=== PATIENT | male | born 1960 | race Two or more races ===

== ENCOUNTER 2016-08-07 02:58 | Inpatient (IN) | payer MEDICAID ==
[~2016-08-07] VITALS: Ht 182.9 cm; Wt 85.0 kg
[~2016-08-07 02:58] MED LIST: ASPI-247; HYDR1CAP27; METF-370; METO25TA62; NIAC500T58
[2016-08-07 03:30] LABS: Basophils # (auto) 0 uL; Basophils % (auto) 0.4 % (0.0-2.0); CONDITION Y; Eosinophils # (auto) 0.4 uL; Eosinophils % (auto) 3.5 % (0.0-7.0); Hematocrit 43.2 % (41.0-53.0); Hemoglobin 14.1 g/dL (13.5-17.5); Lymphocytes % (auto) 32.8 % (10.0-50.0); Mean Corpuscular Hemoglobin 28.1 pg (28.0-32.0); Mean Corpuscular Hgb Conc. 32.7 g/dL (32.0-36.0); Mean Corpuscular Volume 85.9 fL (80.0-100.0); Mean Platelet Volume 8.8 fL (7.4-10.4); Monocytes # (auto) 1.2 uL; Monocytes % (auto) 9.9 % (0.0-12.0); Neutrophils # (auto) 6.5 uL; Neutrophils % (auto) 53.4 % (37.0-80.0); Platelet Count (auto) 250 10^3/uL (140-450); Red Cell Distribution Width 15.1 % (11.6-16.0); White Blood Cell 12.3 10^3/uL (4.4-10.8)
[2016-08-07 03:46] LABS: INR 0.97 (0.9-1.15); Prothrombin Time 10.6 sec (9.37-12.3)
[2016-08-07 03:55] LABS: Albumin 3.5 g/dL (3.4-5.0); BUN/Creatinine Ratio 14.8; Bilirubin, Total 0.2 mg/dL (0.2-1.0); Calcium 8.6 mg/dL (8.5-10.1); Magnesium 2.2 mg/dL (1.6-2.6); Potassium 3.6 mmol/L (3.5-5.1); Total Protein 6.7 g/dL (6.4-8.2)
[2016-08-07] MEDS ORDERED: ASPirin 81 mg TAB PO ONE (05:15)
[2016-08-07] MEDS ORDERED: NITROGLYCERIN 2% OINT 1GM PKG TD ONE (05:15)
[2016-08-07] MEDS ORDERED: DEXTROSE (50%) 50ML SYRG IV PRN (10:30)
[2016-08-07] MEDS ORDERED: ZOLPIDEM TARTRATE 5 MG TAB PO PRN (10:45)
[2016-08-07] MEDS ORDERED: ACETAMINOPHEN 325 MG TAB PO PRN (10:45)
[2016-08-07] MEDS ORDERED: ONDANSETRON HCL 4 MG/2 ML VIAL IV PRN (10:45)
[2016-08-07] MEDS ORDERED: LORazepam 0.5 MG TAB PO PRN (10:45)
[2016-08-07] MEDS ORDERED: NITROGLYCERIN 0.4 MG SL TAB SL PRN ×2 (10:45)
[2016-08-07] MEDS ORDERED: ALUM & MAG HYDROX-SIMETH LIQ(MAALOX) 30 ML PO ONE (10:45)
[2016-08-07] MEDS ORDERED: hydrOXYzine PAMOATE 25 MG CAP PO PRN (10:45)
[2016-08-07] MEDS ORDERED: MORPHINE SULF INJ 2 MG/ML SYRINGE 1ML IV PRN ×2 (10:45)
[2016-08-07 11:08] LABS: B-Type Natriuretic Peptide 48.82 pg/mL (0-100)
[2016-08-07 11:11] LABS: Temperature: 24.1 C (20.0-25.0)
[2016-08-07] MEDS: ENALAPRIL MALEATE 2.5 MG TAB PO SCH ×2 (11:20→22:00)
[2016-08-07] MEDS: METOPROLOL TARTRATE 25 MG TAB PO SCH ×2 (11:20→22:00)
[2016-08-07] MEDS: CLOPIDOGREL BISULFATE 75 MG TAB PO SCH (11:20)
[2016-08-07] MEDS: ACCU-CHEK COMFORT CURVE STRIP VI SCH ×3 (11:25→22:00)
[2016-08-07] MEDS: InsuLIN REG 1unit/0.01ml Soln (100units/ml) SC SCH ×3 (11:25→22:00)
[2016-08-07] MEDS: SODIUM CHLOR 0.9% PF (SALINE LOCK) 10ML VIAL IV SCH ×2 (12:15→22:00)
[2016-08-07 13:46] LABS: Urine Bilirubin Negative (Negative); Urine Blood Negative /uL (Negative); Urine Color Yellow (Yellow); Urine Glucose Normal (Normal); Urine Ketone Negative (Negative); Urine Mucus FEW (None Seen); Urine Nitrite Negative (Negative); Urine RBC <1 /hpf (0 - 3); Urine Urobilinogen Normal (Negative); Urine pH 5.5 (5.0-8.0)
[2016-08-07] MEDS: NITROGLYCERIN 0.4MG/HR TOPICAL PATCH TD SCH (15:09)
[2016-08-07] MEDS: RANOLAZINE ER 500 MG TAB PO SCH (22:00)
[2016-08-07] MEDS: ATORVASTATIN 20 MG TAB PO SCH (22:00)
[2016-08-07] MEDS ORDERED: PATIENTS OWN MEDICATION PO SCH ×2 (22:00)
[2016-08-08 03:54] LABS: Basophils # (auto) 0 uL; Basophils % (auto) 0.2 % (0.0-2.0); CONDITION Y; Eosinophils # (auto) 0.2 uL; Eosinophils % (auto) 1.6 % (0.0-7.0); Hematocrit 41.3 % (41.0-53.0); Hemoglobin 13.6 g/dL (13.5-17.5); Lymphocytes # (auto) 2.8 uL; Lymphocytes % (auto) 19.3 % (10.0-50.0); Mean Corpuscular Hemoglobin 28.3 pg (28.0-32.0); Mean Corpuscular Volume 85.9 fL (80.0-100.0); Mean Platelet Volume 9.3 fL (7.4-10.4); Monocytes # (auto) 1.2 uL; Monocytes % (auto) 8.4 % (0.0-12.0); Neutrophils # (auto) 10.4 uL; Neutrophils % (auto) 70.5 % (37.0-80.0); Platelet Count (auto) 236 10^3/uL (140-450); White Blood Cell 14.7 10^3/uL (4.4-10.8)
[2016-08-08 04:30] LABS: Albumin 3.3 g/dL (3.4-5.0); BUN/Creatinine Ratio 9.3; Bilirubin, Total 0.5 mg/dL (0.2-1.0); Calcium 8.3 mg/dL (8.5-10.1); Magnesium 2.2 mg/dL (1.6-2.6); Total Protein 6.2 g/dL (6.4-8.2)
[2016-08-08] MEDS: SODIUM CHLOR 0.9% PF (SALINE LOCK) 10ML VIAL IV SCH ×3 (06:02→22:34)
[2016-08-08] MEDS: ACCU-CHEK COMFORT CURVE STRIP VI SCH ×4 (06:21→22:30)
[2016-08-08] MEDS: InsuLIN REG 1unit/0.01ml Soln (100units/ml) SC SCH ×4 (06:21→22:00)
[2016-08-08] MEDS ORDERED: ANGIOMAX 250 MG VIAL IV ONE (07:55)
[2016-08-08] MEDS ORDERED: MIDAZOLAM HCL 1MG/1ML-2 ML VIAL ONE (07:56)
[2016-08-08] MEDS ORDERED: EPTIFIBATIDE INJ (2MG/ML) 10ML VIAL IV ONE (07:56)
[2016-08-08] MEDS ORDERED: SODIUM CHL 0.9% 0 ML ONE (07:56)
[2016-08-08] MEDS ORDERED: fentaNYL CITRATE 100 MCG/2 ML VL ONE (07:56)
[2016-08-08] MEDS ORDERED: IOHEXOL 350 MG/ML 100ML IJ ONE (08:07)
[2016-08-08] MEDS ORDERED: LIDOCAINE 2%HCL (LOCAL ANESTH.) INJ 20ML MDV ONE (08:07)
[2016-08-08] MEDS: NITROGLYCERIN 0.4MG/HR TOPICAL PATCH TD SCH (10:00)
[2016-08-08] MEDS: DOCUSATE SOD 100 MG CAP PO SCH (10:00)
[2016-08-08] MEDS: ENALAPRIL MALEATE 2.5 MG TAB PO SCH ×2 (10:00→22:32)
[2016-08-08] MEDS ORDERED: ASPirin 325 MG TAB PO SCH (10:00)
[2016-08-08] MEDS: RANOLAZINE ER 500 MG TAB PO SCH ×2 (10:00→22:00)
[2016-08-08] MEDS: ezetimibe 10mg tablet PO SCH (10:00)
[2016-08-08] MEDS: CLOPIDOGREL BISULFATE 75 MG TAB PO SCH (10:26)
[2016-08-08 10:45] VITALS: BP 112/57
[2016-08-08 14:09] VITALS: BP 112/59
[2016-08-08 16:46] VITALS: BP 114/62
[2016-08-08 22:17] VITALS: BP 133/70
[2016-08-08] MEDS: ENOXAPARIN SOD 80 MG/0.8ML SYRINGE SC SCH (22:32)
[2016-08-08] MEDS: ATORVASTATIN 20 MG TAB PO SCH (22:33)
[2016-08-09 05:07] VITALS: BP 113/64
[2016-08-09] MEDS: SODIUM CHLOR 0.9% PF (SALINE LOCK) 10ML VIAL IV SCH ×2 (06:48→15:20)
[2016-08-09] MEDS: InsuLIN REG 1unit/0.01ml Soln (100units/ml) SC SCH ×2 (06:54→11:30)
[2016-08-09] MEDS: ACCU-CHEK COMFORT CURVE STRIP VI SCH ×2 (06:54→11:45)
[2016-08-09 07:15] LABS: Basophils # (auto) 0 uL; Basophils % (auto) 0.3 % (0.0-2.0); CONDITION Y; Eosinophils # (auto) 0.2 uL; Eosinophils % (auto) 1.7 % (0.0-7.0); Hematocrit 43.2 % (41.0-53.0); Hemoglobin 14.3 g/dL (13.5-17.5); Lymphocytes # (auto) 3.9 uL; Lymphocytes % (auto) 30.8 % (10.0-50.0); Mean Corpuscular Hemoglobin 28.1 pg (28.0-32.0); Mean Corpuscular Hgb Conc. 33.1 g/dL (32.0-36.0); Mean Corpuscular Volume 84.8 fL (80.0-100.0); Mean Platelet Volume 8.9 fL (7.4-10.4); Monocytes % (auto) 8.3 % (0.0-12.0); Neutrophils # (auto) 7.4 uL; Neutrophils % (auto) 58.9 % (37.0-80.0); Platelet Count (auto) 228 10^3/uL (140-450); White Blood Cell 12.6 10^3/uL (4.4-10.8)
[2016-08-09 07:26] LABS: BUN/Creatinine Ratio 14.1; Calcium 8.3 mg/dL (8.5-10.1); Magnesium 2.2 mg/dL (1.6-2.6); Potassium 3.9 mmol/L (3.5-5.1)
[2016-08-09 08:00] VITALS: BP 113/64
[2016-08-09 09:00] VITALS: BP 127/63
[2016-08-09] MEDS: RANOLAZINE ER 500 MG TAB PO SCH (09:38)
[2016-08-09] MEDS: DOCUSATE SOD 100 MG CAP PO SCH (09:38)
[2016-08-09] MEDS: ENALAPRIL MALEATE 2.5 MG TAB PO SCH (09:38)
[2016-08-09] MEDS: ezetimibe 10mg tablet PO SCH (09:47)
[2016-08-09] MEDS: ENOXAPARIN SOD 80 MG/0.8ML SYRINGE SC SCH (09:47)
[2016-08-09] MEDS ORDERED: ASPirin 325 MG TAB PO SCH (10:00)
[2016-08-09 13:00] VITALS: BP 127/80
[2016-08-09] MEDS ORDERED: MORPHINE SULFATE 4 MG/ML SYRG IV PRN (14:31)
[2016-08-09 15:54] VITALS: BP 127/80
== END 2016-08-09 16:40 | disposition home or self-care (01) | DRG 190 ==
LOC: ER 03:01 → TELE 03:02 → TELE-WESTW 08-08 10:38
PROVIDERS: ADMIT Internal Medicine; ATTEND Internal Medicine
PROC: B2111ZZ Fluoroscopy of Multiple Coronary Arteries using Low Osmolar Contrast (ICD-10-PCS; principal; 2016-08-09)
PROC: 4A023N7 Measurement of Cardiac Sampling and Pressure, Left Heart, Percutaneous Approach (ICD-10-PCS; 2016-08-09)
PROC: B2181ZZ Fluoroscopy of Left Internal Mammary Bypass Graft using Low Osmolar Contrast (ICD-10-PCS; 2016-08-09)
DX: I21.4 Non-ST elevation (NSTEMI) myocardial infarction (principal); I50.43 Acute on chronic combined systolic (congestive) and diastolic (congestive) heart failure; E11.65 Type 2 diabetes mellitus with hyperglycemia; Z95.1 Presence of aortocoronary bypass graft; E11.8 Type 2 diabetes mellitus with unspecified complications; I25.10 Atherosclerotic heart disease of native coronary artery without angina pectoris; I11.0 Hypertensive heart disease with heart failure; D72.825 Bandemia; E78.5 Hyperlipidemia, unspecified; F17.210 Nicotine dependence, cigarettes, uncomplicated; I25.2 Old myocardial infarction; Z82.49 Family history of ischemic heart disease and other diseases of the circulatory system; Z79.82 Long term (current) use of aspirin; Z71.89 Other specified counseling; Z71.6 Tobacco abuse counseling
CPT/HCPCS: 36415; 71010; 80048; 80053; 80061; 81001; 82962; 83036; 83735; 83880; 84443; 84484; 85025; 85610; 85730; 93005; 93306; 93459; J1815; J2250

== ENCOUNTER → 2016-09-12 | Outpatient (CLI) | payer MEDICAID ==
[2016-09-12 14:40] VITALS: BP 105/73
[2016-09-12 15:00] VITALS: BP 110/64
[2016-09-12 16:59] LABS: Cholesterol 95 mg/dL (< 200); HDL Cholesterol 29 mg/dL (40-59); LDL Cholesterol 52 mg/dL (< 100); Triglycerides 185 mg/dL (< 150)
== END | disposition home or self-care (01) ==
LOC: CHF HDHVI 14:49
PROVIDERS: ATTEND Internal Medicine Cardiovascular Disease
DX: E78.00 Pure hypercholesterolemia, unspecified (principal); E78.5 Hyperlipidemia, unspecified
CPT/HCPCS: 36415; 80061; G0463

== ENCOUNTER → 2016-09-22 | Outpatient (CLI) | payer MEDICAID ==
[~2016-09-22] VITALS: Ht 182.9 cm; Wt 83.5 kg
[~2016-09-22] MED LIST changes: -ASPI-247; +ASPI-247 PO; +ATOR1TAB PO; -HYDR1CAP27; +HYDR1CAP27 PO; -METO25TA62; +METO25TA62 PO; +NITR0.4S29 SL; +RANO500T PO
[2016-09-22 09:25] VITALS: BP 103/55
[2016-09-22 10:10] VITALS: BP 124/65
[2016-09-22 11:46] LABS: Basophils # (auto) 0 uL; Basophils % (auto) 0.3 % (0.0-2.0); CONDITION Y; Eosinophils # (auto) 0.3 uL; Eosinophils % (auto) 2.9 % (0.0-7.0); Hematocrit 44.9 % (41.0-53.0); Hemoglobin 14.7 g/dL (13.5-17.5); Lymphocytes # (auto) 2.8 uL; Lymphocytes % (auto) 27.9 % (10.0-50.0); Mean Corpuscular Hemoglobin 28.3 pg (28.0-32.0); Mean Corpuscular Hgb Conc. 32.8 g/dL (32.0-36.0); Mean Platelet Volume 9.6 fL (7.4-10.4); Monocytes # (auto) 0.7 uL; Monocytes % (auto) 7.3 % (0.0-12.0); Neutrophils # (auto) 6.2 uL; Neutrophils % (auto) 61.6 % (37.0-80.0); Platelet Count (auto) 245 10^3/uL (140-450); Red Cell Distribution Width 15.5 % (11.6-16.0); White Blood Cell 10.1 10^3/uL (4.4-10.8)
[2016-09-22 11:59] LABS: INR 0.98 (0.9-1.15); Partial Thromboplastin Time 26.4 sec (22.64-33.71); Prothrombin Time 10.7 sec (9.37-12.3)
[2016-09-22 12:16] LABS: BUN/Creatinine Ratio 12.6; Calcium 8.8 mg/dL (8.5-10.1); Potassium 3.9 mmol/L (3.5-5.1)
== END | disposition home or self-care (01) ==
LOC: CHF HDHVI 09:06
PROVIDERS: ATTEND Internal Medicine Cardiovascular Disease
DX: Z01.818 Encounter for other preprocedural examination (principal); I25.10 Atherosclerotic heart disease of native coronary artery without angina pectoris; I10 Essential (primary) hypertension; D64.9 Anemia, unspecified; R79.1 Abnormal coagulation profile
CPT/HCPCS: 36415; 80048; 82565; 85025; 85610; 85730; 93005; G0463

== ENCOUNTER 2016-09-26 13:02 | Day surgery (SDC) | payer MEDICAID ==
[~2016-09-26 13:02] MED LIST changes: -METF-370; -NIAC500T58
[2016-09-26] MEDS ORDERED: IOHEXOL 350 MG/ML 100ML IJ ONE (13:11)
[2016-09-26] MEDS ORDERED: LIDOCAINE 2%HCL (LOCAL ANESTH.) INJ 20ML MDV ONE (13:11)
[2016-09-26] MEDS ORDERED: fentaNYL CITRATE 100 MCG/2 ML VL ONE (14:04)
[2016-09-26] MEDS ORDERED: MIDAZOLAM HCL 1MG/1ML-2 ML VIAL ONE (14:04)
[2016-09-26] MEDS ORDERED: SODIUM CHL 0.9% 0 ML ONE (14:05)
[2016-09-26] MEDS ORDERED: ANGIOMAX 250 MG VIAL IV ONE (14:05)
== END 2016-09-26 16:45 | disposition home or self-care (01) ==
LOC: CATH 13:02
PROVIDERS: ATTEND Internal Medicine Cardiovascular Disease
DX: I25.10 Atherosclerotic heart disease of native coronary artery without angina pectoris (principal); F17.210 Nicotine dependence, cigarettes, uncomplicated; Z95.1 Presence of aortocoronary bypass graft
CPT/HCPCS: 93458; C1887; C1894; J1644; J3010; J7030; Q9967; J2250